=== PATIENT | female | born 1990 | race Caucasian/White ===

== ENCOUNTER 2019-04-11 20:14 | Emergency (ER) | payer MEDICARE ==
[~2019-04-11] VITALS: Ht 152.4 cm; Wt 86.2 kg
[2019-04-11] MEDS ORDERED: LEVE500 PO (21:11)
[2019-04-11] MEDS ORDERED: PREG50 PO (21:12)
[2019-04-11] MEDS ORDERED: VENL150ER (21:12)
[2019-04-11] MEDS ORDERED: OMEP20ER PO (21:13)
[2019-04-11] MEDS ORDERED: LIDO5TO TOP (21:13)
[2019-04-11] MEDS ORDERED: LEVSOD75 PO (21:14)
[2019-04-11] MEDS ORDERED: Lipitor20 MG PO (21:14)
[2019-04-11] MEDS ORDERED: ONDA8 PO (21:14)
[2019-04-11] MEDS ORDERED: PRED5 PO (21:15)
[2019-04-11] MEDS ORDERED: D3-5050000 UNIT PO (21:15)
[2019-04-11] MEDS ORDERED: INDERAL XL120 MG PO (21:16)
[2019-04-11] MEDS ORDERED: Roxicodone5 MG PO (22:03)
== END 2019-04-11 22:14 | disposition home or self-care (01) ==
LOC: ER 20:14
DX: S89.92XA Unspecified injury of left lower leg, initial encounter (principal); S49.92XA Unspecified injury of left shoulder and upper arm, initial encounter; G40.909 Epilepsy, unspecified, not intractable, without status epilepticus; Z88.0 Allergy status to penicillin; Z88.8 Allergy status to other drugs, medicaments and biological substances; F17.210 Nicotine dependence, cigarettes, uncomplicated; V80.010A Animal-rider injured by fall from or being thrown from horse in noncollision accident, initial encounter
CPT/HCPCS: 71045; 73010; 73030; 73562-LT; 96372; 99283-25; A9270; J1170

== ENCOUNTER 2019-04-16 17:49 | Emergency (ER) | payer MEDICARE ==
[~2019-04-16] VITALS: Ht 162.6 cm; Wt 90.7 kg
[~2019-04-16 17:49] MED LIST: D3-5050000 UNIT PO; INDERAL XL120 MG PO; LEVE500 PO; LEVSOD75 PO; LIDO5TO TOP; Lipitor20 MG PO; OMEP20ER PO; ONDA8 PO; PRED5 PO; PREG50 PO; Roxicodone5 MG PO; VENL150ER
[2019-04-16] MEDS ORDERED: BACLOFEN5 MG PO (20:35)
[2019-04-16] MEDS ORDERED: TRAM50 PO (20:35)
== END 2019-04-16 21:20 | disposition home or self-care (01) ==
LOC: ER 17:49
DX: M62.830 Muscle spasm of back (principal); M79.602 Pain in left arm; Z88.0 Allergy status to penicillin; Z88.8 Allergy status to other drugs, medicaments and biological substances; Z79.899 Other long term (current) drug therapy; Z79.52 Long term (current) use of systemic steroids; G40.909 Epilepsy, unspecified, not intractable, without status epilepticus; F17.210 Nicotine dependence, cigarettes, uncomplicated
CPT/HCPCS: 99283